=== PATIENT | female | born 1960 | race Caucasian/White ===

== ENCOUNTER 2016-08-10 08:08 | Day surgery (SDC) | payer OTHER ==
[2016-07-19 12:08] VITALS: BMI 24.0
[~2016-08-10 08:08] MED LIST: LACTATED RINGERS 1,000 ML IV SCH
[2016-08-10 08:23] VITALS: TEMP 98.4
[2016-08-10] MEDS ORDERED: LIDOCAINE 1% 20 ML VIAL (10MG/ML) FOR IV START INTRADERMA ONE (08:33)
[2016-08-10] MEDS ORDERED: LIDOCAINE 1% INJ 10MG/ML (20 ML MDV) ONE (09:21)
[2016-08-10] MEDS ORDERED: PROPOFOL 10 MG/ML 20 ML VIAL IV ONE (09:21)
--- NOTE | 2016-08-10 09:24 | P.GSHP ---
History of Present Illness H&P Date: 08/10/16 Chief Complaint: Screening colonoscopy 55-year-old female who presents today for screening colonoscopy. Patient denies a significant GI complaints. - Constitutional Constitutional: Reports as per HPI Past Medical History Past Medical History: COPD History of Any Multi-Drug Resistant Organisms: None Reported Past Surgical History: Tonsillectomy, Tubal Ligation Past Anesthesia/Blood Transfusion Reactions: No Reported Reaction Past Psychological History: Anxiety, Bipolar, Depression Smoking Status: Former smoker Past Alcohol Use History: Occasional Additional Past Alcohol Use History / Comment(s): STARTED SMOKING AT AGE 14 QUIT SMOKING 2014 SMOKED 1PPD/ DRINKS ONE GLASS OF WINE DAILY Past Drug Use History: None Reported - Past Family History Mother Family Medical History: Cancer Additional Family Medical History / Comment(s): CERVICAL CANCER Father Family Medical History: Cancer Medications and Allergies Home Medications Medication Instructions Recorded Confirmed Type Ergocalciferol [Vitamin D2] 50,000 unit PO Q7D 07/19/16 08/10/16 History LORazepam [Ativan] 1 mg PO BID 07/19/16 08/10/16 History OLANZapine [ZyPREXA] 20 mg PO HS 07/19/16 08/10/16 History Sertraline HCl [Zoloft] 200 mg PO DAILY 07/19/16 08/10/16 History cloNIDine HCL [Catapres] 0.2 mg PO BID 07/19/16 08/10/16 History lamoTRIgine [LaMICtal] 100 mg PO BID 07/19/16 08/10/16 History Lurasidone [Latuda] 40 mg PO DAILY 08/06/16 08/10/16 History Allergies Allergy/AdvReac Type Severity Reaction Status Date / Time No Known Allergies Allergy Verified 08/10/16 08:25 Surgical - Exam Vital Signs Temp Pulse Resp BP Pulse Ox 98.4 F 73 16 125/73 96 08/10/16 08:19 08/10/16 08:19 08/10/16 08:19 08/10/16 08:19 08/10/16 08:19 - General well developed, no distress - Eyes PERRL - ENT normal pinna - Neck no masses - Respiratory normal expansion - Cardiovascular Rhythm: regular - Abdomen Abdomen: soft, non tender Assessment and Plan Plan: We'll perform screening colonoscopy
--- NOTE | 2016-08-10 09:42 | P.OP ---
Date of Procedure: 08/10/16 Preoperative Diagnosis: Screening colonoscopy Postoperative Diagnosis: Diverticulosis Left colon polyp Procedure(s) Performed: Colonoscopy Implants: Anesthesia: MAC Surgeon: Henry Daigle Pathology: other (Left colon polyp) Condition: stable Disposition: PACU Indications for Procedure: Operative Findings: Description of Procedure: The patient's placed on the endoscopy table in the lateral position. She received IV sedation. Digital rectal exam was performed which revealed no abnormalities. The flexible colonoscope was then placed patient anus and passed throughout the entire colon. The ileocecal valve lesions. The cecum, ascending and transverse colon appeared normal. In the descending colon there was a small polyp seen this removed the forcep there is also some mild diverticular changes. In the sigmoid colon there is more diverticular changes noted. Scope was then brought back the rectum and this appeared normal. The scope was withdrawn for patient.
[2016-08-10 09:54] VITALS: RESP 18
[2016-08-10 10:04] VITALS: BP 119/58; PULSE 67
== END 2016-08-10 10:30 | disposition home or self-care (01) ==
LOC: ORWHC2ENDO 08:08
PROVIDERS: ATTEND Surgery
DX: Z12.11 Encounter for screening for malignant neoplasm of colon (principal); K63.5 Polyp of colon; K57.30 Diverticulosis of large intestine without perforation or abscess without bleeding; F31.9 Bipolar disorder, unspecified; F41.9 Anxiety disorder, unspecified; J44.9 Chronic obstructive pulmonary disease, unspecified; Z87.891 Personal history of nicotine dependence; Z79.899 Other long term (current) drug therapy
CPT/HCPCS: 88305; 45380; J2001; J2704

== ENCOUNTER → 2018-03-07 | Outpatient (CLI) | payer OTHER ==
[2018-03-07 11:12] VITALS: BP 141/67; PULSE 88; TEMP 97.6; BMI 23.8
--- NOTE | 2018-03-07 11:59 | P.HPOB ---
History of Present Illness H&P Date: 03/07/18 Chief Complaint: The patient is here for her routine gynecologic exam and mammogram. This is a 57-year-old with an LMP of 2008. The patient states she continues to be on HRT which she has used for hot flashes and night sweats. She states her menopausal symptoms have improved while she has been on HRT. She is uncertain if she is taking Premarin or Prempro, but she has been taking half tablet of 0.625 mg daily. Previous records from Dr. Donato' office indicates she was on Prempro 0.5/1.5 daily in the past. She denies any postmenopausal bleeding. She has been getting her HRT prescription from [facility]. She is without gynecologic complaints. Review of Systems The patient has gained 9 pounds over the last 2 years. She denies respiratory, cardiac, or G.I. problems. Past Medical History Past Medical History: COPD, Fibromyalgia Additional Past Medical History / Comment(s): pre diabetic. 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 She has no other history of STDs. History of Any Multi-Drug Resistant Organisms: None Reported Past Surgical History: Tonsillectomy, Tubal Ligation Past Anesthesia/Blood Transfusion Reactions: No Reported Reaction Past Psychological History: Anxiety, Bipolar, Depression Smoking Status: Former smoker Past Alcohol Use History: Occasional Additional Past Alcohol Use History / Comment(s): STARTED SMOKING AT AGE 14 QUIT SMOKING 2014 SMOKED 1PPD/ DRINKS ONE GLASS OF WINE DAILY Past Drug Use History: None Reported - Past Family History Mother Family Medical History: Cancer Additional Family Medical History / Comment(s): CERVICAL CANCER Father Family Medical History: Cancer Medications and Allergies Home Medications Medication Instructions Recorded Confirmed Type Ergocalciferol [Vitamin D2] 50,000 unit PO Q7D 07/19/16 03/07/18 History LORazepam [Ativan] 1 mg PO BID 07/19/16 03/07/18 History Sertraline HCl [Zoloft] 200 mg PO DAILY 07/19/16 03/07/18 History cloNIDine HCL [Catapres] 0.2 mg PO BID 07/19/16 03/07/18 History lamoTRIgine [LaMICtal] 100 mg PO BID 07/19/16 08/10/16 History Dicyclomine [Bentyl] 10 mg PO PRN 03/07/18 History Estrogens, Conjugated [Premarin] 0.625 mg PO DIRECTED 03/07/18 03/07/18 History Omeprazole 20 mg PO PRN 03/07/18 History metFORMIN HCL [Glucophage Xr] 500 mg PO HS 03/07/18 03/07/18 History risperiDONE [RisperDAL] 0.5 mg PO TID 03/07/18 03/07/18 History Allergies Allergy/AdvReac Type Severity Reaction Status Date / Time No Known Allergies Allergy Verified 03/07/18 10:43 Exam Vital Signs Temp Pulse BP 03/07/18 11:08 97.6 F 88 141/67 Intake and Output 03/06/18 03/07/18 03/07/18 22:59 06:59 14:59 Other: Weight 63.049 kg Height 5'4", weight 139 pounds, BMI 23.9. This is a well-developed well-nourished white female who is alert and oriented times 3 in no acute distress. HEENT: Within normal limits. NECK: Supple without mass or thyromegaly. CHEST AND LUNGS: Clear to auscultation. HEART: Regular rate and rhythm. BREASTS: Are without mass or discharge. AXILLARY EXAM: Negative for adenopathy. BACK: Negative for CVA tenderness. ABDOMEN: Soft, nontender, without palpable masses. PELVIC EXAM: Normal external genitalia with mild atrophy. Cervix and vagina appear normal mild atrophy. There is no unusual discharge. There is no evidence of prolapse. The uterus is midposition, nongravid size and nontender. There are no palpable adnexal masses or tenderness. RECTAL EXAM: rectovaginal exam is negative for mass or tenderness and is negative for occult blood. EXTREMITIES: Nontender. IMPRESSION: 1. 57-year-old menopausal female who has done well with low dose HRT used for vasomotor menopausal symptoms. 2. Normal gynecologic exam. PLAN: 1. Pap smear was performed. 2. Self breast awareness was discussed with the patient. 3. Greening mammogram will be done today. 4. We have had a long discussion regarding HRT including the WHI study findings. We have discussed the increased risk for heart attack, stroke and breast cancer on HRT. I recommended that she try to wean off of this as soon as possible. Within the next month or 2, I have recommended that she go to taking her HRT every other day, and then to wean off completely in the next month or 2 following. She was instructed to call she has problems with vasomotor symptoms or if any postmenopausal bleeding. The electronic prescription for Prempro 0.3/1.5 will be sent to [facility] pharmacy on [address]. She was instructed to return if she has not been able to wean off completely within 6 months. She will also cause she is having worsening vasomotor symptoms when she tries to wean off. 5.Osteoporosis prevention was discussed. I have stressed the importance of adequate calcium, vitamin D and regular exercise. Recommended amounts of calcium and vitamin D were also discussed. 6. She will return in one year and PRN.
--- NOTE | 2018-03-08 10:13 | MM ---
Reason for exam: screening (asymptomatic). Last mammogram was performed 2 years and 6 months ago. History: Patient is postmenopausal and history of other cancer. Benign cyst aspiration of the left breast, November 27, 1997. Benign cyst aspiration of the right breast, November 27, 1997. 8 cyst aspirations of the left breast. Taking estrogen beginning at age 54. Physical Findings: A clinical breast exam by your physician is recommended on an annual basis and results should be correlated with mammographic findings. MG Screening Mammo w CAD Bilateral CC and MLO view(s) were taken. Prior study comparison: September 18, 2015, left breast MG work up mamm w CAD LT. September 16, 2015, bilateral MG screening mammo w CAD. The breast tissue is extremely dense which could obscure a lesion on mammography. Benign appearing bilateral calcifications. No suspicious abnormality. No significant changes when compared with prior studies. ASSESSMENT: Benign, BI-RAD 2 RECOMMENDATION: Routine screening mammogram of both breasts in 1 year.
== END ==
LOC: WWCWWP 10:24
PROVIDERS: ATTEND Obstetrics & Gynecology
DX: Z12.31 Encounter for screening mammogram for malignant neoplasm of breast (principal)
CPT/HCPCS: 77067

== ENCOUNTER 2020-01-09 14:35 | Inpatient (IN) | payer MEDICAID, OTHER ==
--- NOTE | 2020-01-09 15:24 | ED ---
General Adult HPI - General Chief complaint: Psychiatric Symptoms Stated complaint: mental health Time Seen by Provider: 01/09/20 14:52 Source: patient, family Mode of arrival: ambulatory Limitations: no limitations - History of Present Illness Initial comments: Dictation was produced using [employer] dictation software. please excuse any grammatical, word or spelling errors. This patient was cared for during a federal and state declared state of emergency secondary to Covid 19 Chief Complaint: 59-year-old female past medical history of depression anxiety and anxiety presents with depression History of Present Illness: Patient is a 59-year-old female she has past medical history depression and anxiety. She does have a counselor and the medical provider that treats her for this. She is depressed because her will drive her out of the house due to the risk of sonia coronavirus. She is very upset about this. She is accompanied by her sister Hansa who drove her to the emergency room to be evaluated. Patient denies any suicidal attempt. She had does however feel suicidal. She repeatedly says she does not want to be here. She does not have a specific plan. She denies any homicidal ideation. No visual or auditory hallucinations. Patient does not have any medical complaints at this time. The ROS documented in this emergency department record has been reviewed and confirmed by me. Those systems with pertinent positive or negative responses have been documented in the HPI. All other systems are other negative and/or noncontributory. PHYSICAL EXAM: General Impression: Alert and oriented x3, not in acute distress HEENT: Normocephalic atraumatic, extra-ocular movements intact, pupils equal and reactive to light bilaterally, mucous membranes moist. Cardiovascular: Heart regular rate and rhythm Chest: Able to complete full sentences, no retractions, no tachypnea Abdomen: abdomen soft, non-tender, non-distended, no organomegaly Musculoskeletal: Pulses present and equal in all extremities, no peripheral edema Motor: no focal deficits noted Neurological: CN II-XII grossly intact, no focal motor or sensory deficits noted Skin: Intact with no visualized rashes Psych: Tearful ED course: 59 y Old female presents with depression and suicidal ideation. Signs upon arrival are within acceptable limits. Patient medically cleared for EPS evaluation. Patient evaluated by EPS and will admit patient to inpatient psychiatry. - Related Data Home Medications Medication Instructions Recorded Confirmed Ergocalciferol [Vitamin D2] 50,000 unit PO MO 07/19/16 01/09/20 cloNIDine HCL [Catapres] 0.2 mg PO QID 07/19/16 01/09/20 lamoTRIgine [LaMICtal] 100 mg PO TID 07/19/16 01/09/20 Atomoxetine HCl [Strattera] 60 mg PO DAILY 01/09/20 01/09/20 Ibuprofen [Motrin] 800 mg PO DAILY PRN 01/09/20 01/09/20 LORazepam [Ativan] 2 mg PO Q12H PRN 01/09/20 01/09/20 Vilazodone HCl [Viibryd] 40 mg PO DAILY 01/09/20 01/09/20 metFORMIN HCL 500 mg PO DAILY 01/09/20 01/09/20 risperiDONE 4 mg PO DAILY 01/09/20 01/09/20 Allergies Allergy/AdvReac Type Severity Reaction Status Date / Time No Known Allergies Allergy Verified 01/09/20 16:18 Review of Systems ROS Statement: Those systems with pertinent positive or pertinent negative responses have been documented in the HPI. ROS Other: All systems not noted in ROS Statement are negative. Past Medical History Past Medical History: COPD, Fibromyalgia Additional Past Medical History / Comment(s): pre diabetic. 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 She has no other history of STDs. History of Any Multi-Drug Resistant Organisms: None Reported Past Surgical History: Tonsillectomy, Tubal Ligation Past Anesthesia/Blood Transfusion Reactions: No Reported Reaction Past Psychological History: Anxiety, Bipolar, Depression Smoking Status: Vaper Past Alcohol Use History: Occasional Past Drug Use History: None Reported - Past Family History Mother Family Medical History: Cancer Additional Family Medical History / Comment(s): CERVICAL CANCER Father Family Medical History: Cancer General Exam Limitations: no limitations Course Vital Signs 01/09/20 14:46 Temperature 98.1 F Pulse Rate 98 Respiratory 16 Rate Blood Pressure 170/91 O2 Sat by Pulse 95 Oximetry Medical Decision Making - Lab Data Lab Results 01/09/20 Range/Units 15:27 Urine Opiates Screen Not Detected (NotDetected) Ur Oxycodone Screen Not Detected (NotDetected) Urine Methadone Screen Not Detected (NotDetected) Ur Propoxyphene Screen Not Detected (NotDetected) Ur Barbiturates Screen Not Detected (NotDetected) U Tricyclic Antidepress Not Detected (NotDetected) Ur Phencyclidine Scrn Not Detected (NotDetected) Ur Amphetamines Screen Not Detected (NotDetected) U Methamphetamines Scrn Not Detected (NotDetected) U Benzodiazepines Scrn Detected H (NotDetected) Urine Cocaine Screen Not Detected (NotDetected) U Marijuana (THC) Screen Detected H (NotDetected) Disposition Clinical Impression: Suicidal behavior Disposition: ADMITTED IP TO THIS [facility] Condition: Fair Decision Time: 17:01
[2020-01-09 15:57] LABS: Amphetamine Screen,Urine Not Detected (NotDetected); Barbiturate Screen,Urine Not Detected (NotDetected); Benzodiazepines Screen,Urine Detected (NotDetected); Cocaine Screen,Urine Not Detected (NotDetected); Methadone Screen, Urine Not Detected (NotDetected); Opiate Screen,Urine Not Detected (NotDetected); Oxycodone Screen, Urine Not Detected (NotDetected); Phencyclidine Screen,Urine Not Detected (NotDetected); Tricyclic Antidepressant,Urine Not Detected (NotDetected); Urn Cannabinoid Scrn Detected (NotDetected)
[2020-01-09] MEDS ORDERED: IBUPROFEN 400 MG TAB PO STA (16:16)
[2020-01-09] MEDS: ALPRAZolam 0.5 MG TAB PO STA ×2 (16:18→16:19)
[2020-01-09] MEDS ORDERED: LORazepam 1 MG TAB PO STA (16:19)
[2020-01-09] MEDS ORDERED: ZIPRASIDONE 20 MG VIAL IM PRN (17:04)
[2020-01-09] MEDS ORDERED: MAGNESIUM HYDROXIDE 2,400 MG/10 ML CUP PO PRN (17:04)
[2020-01-09] MEDS: cloNIDine HCL 0.2 MG TAB PO SCH ×2 (18:10→21:31)
[2020-01-09 18:16] LABS: Glucose,Whole Blood 100 mg/dL (75-99)
[2020-01-09 20:09] LABS: Glucose,Whole Blood 101 mg/dL (75-99)
[2020-01-09] MEDS: lamoTRIgine 100 MG TAB PO SCH (21:31)
[2020-01-10] MEDS: LORazepam 1 MG TAB PO PRN ×3 (01:35→16:36)
[2020-01-10] MEDS: ACETAMINOPHEN TAB 325 MG TAB PO PRN ×3 (04:31→17:23)
[2020-01-10] MEDS ORDERED: IBUPROFEN 400 MG TAB PO STA (06:33)
[2020-01-10 08:09] LABS: Glucose,Whole Blood 124 mg/dL (75-99)
[2020-01-10] MEDS: cloNIDine HCL 0.2 MG TAB PO SCH ×4 (08:14→21:29)
[2020-01-10] MEDS: metFORMIN 500 MG TAB PO SCH (08:15)
[2020-01-10] MEDS: lamoTRIgine 100 MG TAB PO SCH ×3 (08:15→21:29)
[2020-01-10] MEDS: MAG HYDROX/AL HYDROX/SIMETH 30 ML CUP PO PRN (08:16)
[2020-01-10] MEDS: IBUPROFEN 800 MG TAB PO PRN (08:32)
[2020-01-10] MEDS ORDERED: risperiDONE 2 MG TAB PO SCH (09:00)
[2020-01-10 12:09] LABS: Basophils % (A) 0 %; Eosinophils # (A) 0.1 k/uL (0-0.7); Eosinophils % (A) 1 %; HCT 45.2 % (34.0-46.0); HGB 14.9 gm/dL (11.4-16.0); Lymphocytes # (A) 1.8 k/uL (1.0-4.8); Lymphocytes % (A) 17 %; MCH 30.9 pg (25.0-35.0); MCHC 33.1 g/dL (31.0-37.0); MCV 93.5 fL (80.0-100.0); Mean Platelet Volume 7.1; Monocytes # (A) 0.4 k/uL (0-1.0); Monocytes % (A) 4 %; Neutrophils # (A) 7.9 k/uL (1.3-7.7); Neutrophils % (A) 76 %; Platelet Count 387 k/uL (150-450); RBC 4.83 m/uL (3.80-5.40); RDW 11.9 % (11.5-15.5); WBC 10.5 k/uL (3.8-10.6)
[2020-01-10 12:21] LABS: ALT 27 U/L (4-34); AST 31 U/L (14-36); African American GFR (CKD) >90 (>60 ml/min/1.73 sqM); Albumin 4.6 g/dL (3.5-5.0); Alkaline Phosphatase 96 U/L (38-126); Anion Gap 12 mmol/L; Blood Urea Nitrogen 7 mg/dL (7-17); Calcium 9.9 mg/dL (8.4-10.2); Carbon Dioxide 24 mmol/L (22-30); Chloride 101 mmol/L (98-107); Glucose 105 mg/dL (74-99); Non-African American GFR(CKD) >90 (>60 ml/min/1.73 sqM); Potassium 4.3 mmol/L (3.5-5.1); Sodium 137 mmol/L (137-145); Total Bilirubin 0.8 mg/dL (0.2-1.3); Total Protein 7.4 g/dL (6.3-8.2)
[2020-01-10 12:59] LABS: Glucose,Whole Blood 106 mg/dL (75-99)
[2020-01-10 13:06] VITALS: BMI 21.8
[2020-01-10 13:07] LABS: Cholesterol 256 mg/dL (<200); HDL Cholesterol 61 mg/dL (40-60); LDL Cholesterol,Calculated 145 mg/dL (0-99); Triglycerides 252 mg/dL (<150)
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
[2020-01-10 17:48] LABS: Glucose,Whole Blood 105 mg/dL (75-99)
[2020-01-10 20:07] LABS: Glucose,Whole Blood 129 mg/dL (75-99)
[2020-01-10] MEDS: FLUTICASONE 50MCG/SPRAY NASAL 16GM EA NOSTRIL SCH (20:41)
[2020-01-10] MEDS ORDERED: traZODone HCL 100 MG TAB PO SCH (21:00)
[2020-01-10 21:55] LABS: Hemoglobin A1C 5.9 % (4.0-6.0)
--- NOTE | 2020-01-10 22:51 | P.CONS ---
History of Present Illness - Reason for Consult Consult date: 01/10/20 medical eval - Chief Complaint suicidal - History of Present Illness Bryanna Saez is a 59 yo F with PMH of major depression, T2DM who was brought to the ED by her sister due to expressing suicidal ideation. She lives with her ex- and notes she is very lonely due to the pandemic and has no one to talk to. She also complains of sinus pressure and headache over the psat few weeks. She denies chest pain, fever, chills. Review of Systems All systems: negative Constitutional: Denies chills, Denies fever Eyes: denies blurred vision, denies pain Ears, nose, mouth and throat: Reports headache, Denies sore throat Cardiovascular: Denies chest pain, Denies shortness of breath Respiratory: Denies cough Gastrointestinal: Denies abdominal pain, Denies diarrhea, Denies nausea, Denies vomiting Genitourinary: Denies dysuria, Denies hematuria Musculoskeletal: Denies myalgias Integumentary: Denies pruritus, Denies rash Neurological: Denies numbness, Denies weakness Psychiatric: Reports anxiety, Reports depression, Reports suicidal ideation Endocrine: Denies fatigue, Denies weight change Past Medical History Past Medical History: COPD Additional Past Medical History / Comment(s): pre diabetic. 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 She has no other history of STDs. History of Any Multi-Drug Resistant Organisms: None Reported Past Surgical History: Tonsillectomy, Tubal Ligation Past Anesthesia/Blood Transfusion Reactions: No Reported Reaction Past Psychological History: Anxiety, Bipolar, Depression Smoking Status: Vaper Past Alcohol Use History: Occasional Additional Past Alcohol Use History / Comment(s): STARTED SMOKING AT AGE 14 QUIT SMOKING 2014 SMOKED 1PPD/ DRINKS ONE GLASS OF WINE DAILY Past Drug Use History: None Reported - Past Family History Mother Family Medical History: COPD Additional Family Medical History / Comment(s): CERVICAL CANCER Father Family Medical History: Cancer Medications and Allergies Home Medications Medication Instructions Recorded Confirmed Type Ergocalciferol [Vitamin D2] 50,000 unit PO MO 07/19/16 01/09/20 History cloNIDine HCL [Catapres] 0.2 mg PO QID 07/19/16 01/09/20 History lamoTRIgine [LaMICtal] 100 mg PO TID 07/19/16 01/09/20 History Atomoxetine HCl [Strattera] 60 mg PO DAILY 01/09/20 01/09/20 History Ibuprofen [Motrin] 800 mg PO DAILY PRN 01/09/20 01/09/20 History LORazepam [Ativan] 2 mg PO Q12H PRN 01/09/20 01/09/20 History Vilazodone HCl [Viibryd] 40 mg PO DAILY 01/09/20 01/09/20 History metFORMIN HCL 500 mg PO DAILY 01/09/20 01/09/20 History risperiDONE 4 mg PO DAILY 01/09/20 01/09/20 History Allergies Allergy/AdvReac Type Severity Reaction Status Date / Time No Known Allergies Allergy Verified 01/09/20 18:22 Physical Exam Vitals: Vital Signs Temp Pulse Resp BP BP 01/10/20 22:02 105 H 138/97 01/10/20 21:31 101 H 170/77 01/10/20 17:21 113 H 135/101 01/10/20 14:13 111 H 146/73 01/10/20 13:05 125 H 177/77 01/10/20 08:17 99 166/91 01/10/20 01:36 97.8 F 87 18 147/85 Intake and Output 01/10/20 01/10/20 01/10/20 06:59 14:59 22:59 Other: Weight 57.606 kg General: well nourished, well developed, NAD. Vitals reviewed Eyes: PERRL, EOMI, conjunctiva normal HENT: normocephalic, mucus membranes moist Neck: supple, no JVD Lungs: normal respiratory effort, no wheezes or rales CV: Regular rate and rhythm, no murmur. Peripheral pulses 2+ Abdomen: soft, nondistended, no organomegaly Lymph: no cervical or axillary LAD Skin: warm and dry. Neuro: A&Ox3, normal mood and affect Results CBC & Chem 7: 01/10/20 11:28 01/10/20 11:28 Labs: Abnormal Lab Results - Last 24 Hours (Table) 01/10/20 01/10/20 01/10/20 Range/Units 08:06 11:28 11:28 Neutrophils # 7.9 H (1.3-7.7) k/uL Glucose 105 H (74-99) mg/dL POC Glucose (mg/dL) 124 H (75-99) mg/dL Triglycerides 252 H (<150) mg/dL Cholesterol 256 H (<200) mg/dL LDL Cholesterol, Calc 145 H (0-99) mg/dL HDL Cholesterol 61 H (40-60) mg/dL 01/10/20 01/10/20 01/10/20 Range/Units 12:57 17:45 20:06 Neutrophils # (1.3-7.7) k/uL Glucose (74-99) mg/dL POC Glucose (mg/dL) 106 H 105 H 129 H (75-99) mg/dL Triglycerides (<150) mg/dL Cholesterol (<200) mg/dL LDL Cholesterol, Calc (0-99) mg/dL HDL Cholesterol (40-60) mg/dL Assessment and Plan (1) Allergic rhinitis Current Visit: Yes Status: Acute Code(s): J30.9 - ALLERGIC RHINITIS, UNSPECIFIED SNOMED Code(s): 75394106 (2) Suicidal behavior Current Visit: Yes Status: Acute Code(s): R45.89 - OTHER SYMPTOMS AND SIGNS INVOLVING EMOTIONAL STATE SNOMED Code(s): 819189799 Plan: 1. Suicidal ideation. Management per psychiatry 2. Allergic rhinitis. Start flonase 3. T2DM. Continue metformin
[2020-01-11] MEDS: LORazepam 1 MG TAB PO PRN ×2 (00:41→07:57)
[2020-01-11] MEDS: IBUPROFEN 800 MG TAB PO PRN ×3 (00:42→20:53)
[2020-01-11] MEDS: ACETAMINOPHEN TAB 325 MG TAB PO PRN (04:17)
[2020-01-11 07:40] LABS: Glucose,Whole Blood 104 mg/dL (75-99)
[2020-01-11] MEDS: FLUTICASONE 50MCG/SPRAY NASAL 16GM EA NOSTRIL SCH ×2 (07:56→20:52)
[2020-01-11] MEDS: ARIPiprazole 5 MG TAB PO SCH (07:56)
[2020-01-11] MEDS: cloNIDine HCL 0.2 MG TAB PO SCH ×4 (07:56→20:17)
[2020-01-11] MEDS: lamoTRIgine 100 MG TAB PO SCH ×3 (07:57→20:17)
[2020-01-11] MEDS: metFORMIN 500 MG TAB PO SCH (07:57)
[2020-01-11] MEDS ORDERED: ESCITALOPRAM 10 MG TAB PO SCH (09:00)
--- NOTE | 2020-01-11 11:18 | P.PN ---
Progress Note - Text Progress Note Date: 01/11/20 I reviewed medical records ,did interview patient and case was discussed in treatment team Slept 2-3 hours ,was up at night I reviewed medical consult LABS: Glucose:104,A1c 5.9,Triglycerides:252,Cholesterol 256 ,LDL :145 TODAY VITALS: P:117,R:20,BP:186/92 Participating in groups INTERVAL : patient was laying in bed and agreed to come to office ,stated that she wants to be discharged as "I do not feel comfortable in the bed "stated that she is not depressed but still anxious ,stated that she is social drinker but has been on benzodiazepine for 10 years Rx by PCP ,endorses feeling tired and having migraine ,patient is not forthcoming with past hx and why she is on SSD since 2014 "I had nervous breakdown "but patient was not hospitalized at that time and was treated by her PCP Mental status exam: Patient was wearing her own clothing,hygiene and grooming are fair,,guarded ,evasive ,not forthcoming with informations except demanding to be discharged ,denies any hallucination , ,, alert to person and place ,denies suicidal or homicidal ideation ,insight and judgment are limited ASSESSMENT :Major Depression ,recurrent ,sedative hypnotic use disorder PLAN: Patient continues to meet criteria for inpatient psychiatric admission for symptom stabilization , monitor vitals Q 4 hours ,reconsult medical doctor regarding abnormal labs,continue Abilify ,Lexapro ,add Trazodone for sleep ,PRN Ativan and monitor sedative hypnotic withdrawal ,encourage groups participation,SW on board for discharge planning Estimated discharge :1-2 days
[2020-01-11 12:55] LABS: Glucose,Whole Blood 124 mg/dL (75-99)
[2020-01-11 17:36] LABS: Glucose,Whole Blood 106 mg/dL (75-99)
[2020-01-11 20:11] LABS: Glucose,Whole Blood 157 mg/dL (75-99)
[2020-01-11] MEDS: ATORVASTATIN 10 MG TAB PO SCH (20:17)
[2020-01-11] MEDS: traZODone HCL 50 MG TAB PO SCH (20:17)
[2020-01-12 07:49] LABS: Glucose,Whole Blood 112 mg/dL (75-99)
[2020-01-12] MEDS: ESCITALOPRAM 20 MG TAB PO SCH (08:21)
[2020-01-12] MEDS: ARIPiprazole 5 MG TAB PO SCH (08:21)
[2020-01-12] MEDS: cloNIDine HCL 0.2 MG TAB PO SCH ×4 (08:21→18:02)
[2020-01-12] MEDS: IBUPROFEN 800 MG TAB PO PRN (08:22)
[2020-01-12] MEDS: lamoTRIgine 100 MG TAB PO SCH ×3 (08:22→21:15)
[2020-01-12] MEDS: metFORMIN 500 MG TAB PO SCH (08:22)
[2020-01-12] MEDS: FLUTICASONE 50MCG/SPRAY NASAL 16GM EA NOSTRIL SCH ×2 (08:22→21:14)
--- NOTE | 2020-01-12 10:10 | P.PN ---
Progress Note - Text Progress Note Date: 01/12/20 Interval history: Patient was seen wandering the hallways and was directable and agreeable to s peak with play writer. Patient appears to be somewhat anxious however claims that her anxiety and depression have been improving. She claims that she was able to sleep a bit better last night however still feels a little bit "shaky" from her withdrawals. She states that she has been trying to go to some groups. She was asking about possible discharge on Tuesday. She appeared to be calm and appropri ate with play writer during conversation. She claims to fair appetite. At this time patient denies any suicidal or homicidal ideations intent or plan. Denies any Auditory or visual hallucinations. Patient denies any side effects from the medications and has been compliant with meds. Mental status exam: General Appearance: Patient appears to be stated age is alert, directable, and cooperative. Behavior: No agitated behavior. Patient is calm and directable. Somewhat anxious. Speech: Patient's speech is fluent and nonpressured. Mood/Affect: Mood is improving mildly, affect is congruent and constricted. Suicidality/Homicidality: Patient denies having any suicidal or homicidal ideation intent or plan. Perceptions: Patient denies any auditory or visual hallucinations. Though content/process: There is no evidence of any delusional thought content and thought process is linear and goal-directed. Memory and concentration: AOX3, grossly intact for the purposes of this session Judgment and insight: improving mildly Assessment/Plan: Continue with current diagnosis. Patient continues to meet criteria for inpatient psychiatric admission for symptom stabilization and safety.Patient will be maintained on current psychotropic medication regimen. Monitor for medication compliance and for any psychotropic medication side effects. Will continue to monitor ongoing response to treatment. Encouraged participation in milieu.
[2020-01-12] MEDS: LORazepam 1 MG TAB PO PRN (10:40)
[2020-01-12 12:51] LABS: Glucose,Whole Blood 96 mg/dL (75-99)
[2020-01-12] MEDS: ACETAMINOPHEN TAB 325 MG TAB PO PRN (16:24)
[2020-01-12 17:31] LABS: Glucose,Whole Blood 104 mg/dL (75-99)
[2020-01-12 20:46] LABS: Glucose,Whole Blood 145 mg/dL (75-99)
[2020-01-12] MEDS: traZODone HCL 50 MG TAB PO SCH (21:15)
[2020-01-12] MEDS: ATORVASTATIN 10 MG TAB PO SCH (21:15)
[2020-01-13 07:47] LABS: Glucose,Whole Blood 101 mg/dL (75-99)
[2020-01-13] MEDS: cloNIDine HCL 0.2 MG TAB PO SCH ×4 (08:49→20:09)
[2020-01-13] MEDS: FLUTICASONE 50MCG/SPRAY NASAL 16GM EA NOSTRIL SCH ×2 (08:49→20:09)
[2020-01-13] MEDS: ESCITALOPRAM 20 MG TAB PO SCH (08:49)
[2020-01-13] MEDS: ARIPiprazole 5 MG TAB PO SCH (08:49)
[2020-01-13] MEDS: lamoTRIgine 100 MG TAB PO SCH ×3 (08:50→20:08)
[2020-01-13] MEDS: metFORMIN 500 MG TAB PO SCH (08:50)
--- NOTE | 2020-01-13 10:25 | P.PN ---
Progress Note - Text Progress Note Date: 01/13/20 Interval history: Patient was seen wandering the hallways and was directable and agreeable to s peak with sql report writer. Patient appears to be somewhat anxious however claims that her anxiety and depression have been improving. She claims that she just finished group and was speaking about her story and made her feel "like crying a little bit" and states that she wanted to go to her room to lay down. She claims that she was able to sleep a bit better last night however claims that she only received 5 hours of sleep and requested to have her trazodone increased. Patient also claims that she takes melatonin at home who is willing to take that in the hospital. She states that she has been trying to go to some groups. She appeared to be calm and appropriate with sql report writer during conversation. She claims to fair appetite. At this time patient denies any suicidal or homicidal ideations intent or plan. Denies any Auditory or visual hallucinations. Patient denies any side effects from the medications and has been compliant with meds. Mental status exam: General Appearance: Patient appears to be stated age is alert, directable, and cooperative. Behavior: No agitated behavior. Patient is calm and directable. Speech: Patient's speech is fluent and nonpressured. Mood/Affect: Mood is improving mildly, affect is congruent and constricted. Suicidality/Homicidality: Patient denies having any suicidal or homicidal ideation intent or plan. Perceptions: Patient denies any auditory or visual hallucinations. Though content/process: There is no evidence of any delusional thought content and thought process is linear and goal-directed. Memory and concentration: AOX3, grossly intact for the purposes of this session Judgment and insight: improving mildly Assessment/Plan: Continue with current diagnosis. Patient continues to meet criteria for inpatient psychiatric admission for symptom stabilization and safety.Patient will be maintained on current psychotropic medication regimen, with the exception of increasing trazodone to 200 mg daily at bedtime for insomnia/mood and also starting melatonin 3 mg daily at bedtime for insomnia. Monitor for medication compliance and for any psychotropic medication side effects. Will continue to monitor ongoing response to treatment. Encouraged participation in milieu.
[2020-01-13 12:46] LABS: Glucose,Whole Blood 103 mg/dL (75-99)
[2020-01-13 17:36] LABS: Glucose,Whole Blood 112 mg/dL (75-99)
[2020-01-13] MEDS: ACETAMINOPHEN TAB 325 MG TAB PO PRN (17:39)
[2020-01-13 20:06] LABS: Glucose,Whole Blood 131 mg/dL (75-99)
[2020-01-13] MEDS: ATORVASTATIN 10 MG TAB PO SCH (20:08)
[2020-01-13] MEDS: MAG HYDROX/AL HYDROX/SIMETH 30 ML CUP PO PRN (20:48)
[2020-01-13] MEDS: LORazepam 1 MG TAB PO PRN (20:48)
[2020-01-13] MEDS ORDERED: MELATONIN 3 MG TABLET PO SCH (21:00)
[2020-01-13] MEDS ORDERED: traZODone HCL 100 MG TAB PO SCH (21:00)
[2020-01-14 06:43] VITALS: RESP 16; TEMP 98.6
[2020-01-14 08:06] LABS: Glucose,Whole Blood 107 mg/dL (75-99)
[2020-01-14] MEDS ORDERED: ERGOCALCIFEROL 50,000 UNIT CAP PO SCH (09:00)
[2020-01-14] MEDS: FLUTICASONE 50MCG/SPRAY NASAL 16GM EA NOSTRIL SCH (09:10)
[2020-01-14] MEDS: ARIPiprazole 5 MG TAB PO SCH (09:13)
[2020-01-14] MEDS: metFORMIN 500 MG TAB PO SCH (09:13)
[2020-01-14] MEDS: LORazepam 1 MG TAB PO PRN (09:13)
[2020-01-14] MEDS: cloNIDine HCL 0.2 MG TAB PO SCH ×2 (09:13→13:06)
[2020-01-14] MEDS: ESCITALOPRAM 20 MG TAB PO SCH (09:13)
[2020-01-14] MEDS: lamoTRIgine 100 MG TAB PO SCH (09:13)
[2020-01-14] MEDS ORDERED: traZODone HCL 100 MG TAB PO PRN (09:29)
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
[2020-01-14 12:52] LABS: Glucose,Whole Blood 99 mg/dL (75-99)
[2020-01-14 13:58] VITALS: BP 108/63; PULSE 85
== END 2020-01-14 14:12 | disposition home or self-care (01) | DRG 885 ==
LOC: EC 14:35 → 3MHU 16:58
PROVIDERS: ADMIT Psychiatry & Neurology Psychiatry; ATTEND Psychiatry & Neurology Psychiatry
DX: F33.2 Major depressive disorder, recurrent severe without psychotic features (principal); R45.851 Suicidal ideations; E11.9 Type 2 diabetes mellitus without complications; J44.9 Chronic obstructive pulmonary disease, unspecified; F13.10 Sedative, hypnotic or anxiolytic abuse, uncomplicated; F12.10 Cannabis abuse, uncomplicated; F41.9 Anxiety disorder, unspecified; I10 Essential (primary) hypertension; J30.9 Allergic rhinitis, unspecified; M79.7 Fibromyalgia; G43.909 Migraine, unspecified, not intractable, without status migrainosus; G47.00 Insomnia, unspecified; G89.29 Other chronic pain; F17.210 Nicotine dependence, cigarettes, uncomplicated; F17.290 Nicotine dependence, other tobacco product, uncomplicated; Z71.6 Tobacco abuse counseling; Z79.84 Long term (current) use of oral hypoglycemic drugs; Z79.899 Other long term (current) drug therapy; Z86.59 Personal history of other mental and behavioral disorders; Z86.19 Personal history of other infectious and parasitic diseases; Z90.89 Acquired absence of other organs; Z98.51 Tubal ligation status; Z56.0 Unemployment, unspecified; Z98.890 Other specified postprocedural states; Z80.49 Family history of malignant neoplasm of other genital organs; Z82.5 Family history of asthma and other chronic lower respiratory diseases; Z81.8 Family history of other mental and behavioral disorders
CPT/HCPCS: 80053; 80061; 80306; 82075; 83036; 84443; 85025; 99285

== ENCOUNTER → 2023-01-07 | Outpatient (CLI) | payer OTHER ==
--- NOTE | 2023-01-10 07:22 | USB ---
Reason for Exam: Additional evaluation requested from abnormal screening. Patient History: Menarche at age 12. First Full-Term at age 20. Postmenopausal. Other cancer. Currently using Estrogen, starting at age 54. Cyst Aspiration on the Left side. Cyst Aspiration on the Left side. Cyst Aspiration on the Left side. Cyst Aspiration on the Left side. Cyst Aspiration on the Left side. Cyst Aspiration on the Left side. Cyst Aspiration on the Left side. Cyst Aspiration on the Left side. 11/27/1997, Benign Cyst Aspiration on the right side. 11/27/1997, Benign Cyst Aspiration on the left side. Risk Values: Clair 5 year model risk: 1.4%. NCI Lifetime model risk: 6.0%. Technique: Method: Targeted. Prior Study Comparison: 09/18/2015 Left Diagnostic Mammogram, [facility]. 03/07/2018 Bilateral Screening Mammogram, [facility]. 12/29/2022 Bilateral MG screening mammo w CAD, [facility]. Findings: The upper inner quadrant of the left breast, the axilla of the left breast and the retroareolar of the left breast were scanned. No solid or cystic masses are identified. Mildly prominent ducts noted. Overall Assessment: Benign, BI-RAD 2 Management: Screening Mammogram of both breasts in 1 year. A clinical breast exam by your physician is recommended on an annual basis and results should be correlated with mammographic findings. This exam should not preclude additional follow-up of suspicious palpable abnormalities. Results were given to the patient verbally at the time of exam. Electronically signed and approved by: Yeison Blandon M.D. Radiologis
--- NOTE | 2023-01-12 12:33 | MM ---
Reason for Exam: Additional evaluation requested from abnormal screening. Last screening mammogram was performed less than 1 month ago. Patient History: Menarche at age 12. First Full-Term at age 20. Postmenopausal. Other cancer. Currently using Estrogen, starting at age 54. Cyst Aspiration on the Left side. Cyst Aspiration on the Left side. Cyst Aspiration on the Left side. Cyst Aspiration on the Left side. Cyst Aspiration on the Left side. Cyst Aspiration on the Left side. Cyst Aspiration on the Left side. Cyst Aspiration on the Left side. 11/27/1997, Benign Cyst Aspiration on the right side. 11/27/1997, Benign Cyst Aspiration on the left side. Risk Values: Clair 5 year model risk: 1.4%. NCI Lifetime model risk: 6.0%. Prior Study Comparison: 03/07/2018 Bilateral Screening Mammogram, [facility]. 12/29/2022 Bilateral MG screening mammo w CAD, [facility]. Tissue Density: The breast tissue is heterogeneously dense. This may lower the sensitivity of mammography. Findings: Analyzed By CAD. Increased retroareolar density left breast. Ultrasound recommended. No evidence for suspicious calcifications. Overall Assessment: Incomplete: need additional imaging evaluation, BI-RAD 0 Management: Diagnostic Breast Ultrasound of the left breast. Results were given to the patient verbally at the time of exam. Patient should continue monthly self-breast exams. A clinical breast exam by your physician is recommended on an annual basis. This exam should not preclude additional follow-up of suspicious palpable abnormalities. Note on Clair scores and lifetime risk: 1. A Clair score greater than 3% is considered moderate risk. If this is the case, consider specialist referral to assess eligibility for a risk reducing agent. 2. If overall lifetime risk for the development of breast cancer is 20% or higher, the patient may qualify for future screening with alternating mammogram and breast MRI. Electronically signed and approved by: Yeison Blandon M.D. Radiologis
== END | disposition home or self-care (01) ==
LOC: RADMAMWWP 13:33
PROVIDERS: ATTEND Family Medicine
DX: R92.333 Mammographic heterogeneous density, bilateral breasts (principal); Z78.0 Asymptomatic menopausal state
CPT/HCPCS: 77066; 76642; G0279; 77062

== ENCOUNTER → 2024-09-24 | Outpatient (CLI) | payer OTHER ==
--- NOTE | 2024-09-24 14:52 | MM ---
Reason for Exam: Screening (asymptomatic). Last mammogram was performed 1 year(s) and 9 month(s) ago. Patient History: Menarche at age 12. First Full-Term at age 20. Postmenopausal. Other cancer. Estrogen, starting at age 54 for 8 years. Cyst Aspiration on the Left side. Cyst Aspiration on the Left side. Cyst Aspiration on the Left side. Cyst Aspiration on the Left side. Cyst Aspiration on the Left side. Cyst Aspiration on the Left side. Cyst Aspiration on the Left side. Cyst Aspiration on the Left side. 11/27/1997, Benign Cyst Aspiration on the right side. 11/27/1997, Benign Cyst Aspiration on the left side. Risk Values: Clair 5 year model risk: 1.4%. NCI Lifetime model risk: 5.8%. Prior Study Comparison: 03/07/2018 Bilateral Screening Mammogram, [facility]. 12/29/2022 Bilateral MG screening mammo w CAD, [facility]. 01/07/2023 Bilateral MG 3D work up w/cad [facility], [facility]. Tissue Density: The breasts are heterogeneously dense, which may obscure small masses. Findings: Analyzed By CAD. There are small benign-appearing scattered round calcifications redemonstrated throughout the Bilateral breasts. There is no suspicious group of microcalcifications or new suspicious mass in either breast. Overall Assessment: Benign, BI-RAD 2 Management: Screening Mammogram of both breasts in 1 year. . Patient should continue monthly self-breast exams. A clinical breast exam by your physician is recommended on an annual basis. This exam should not preclude additional follow-up of suspicious palpable abnormalities. Note on Clair scores and lifetime risk: 1. A Clair score greater than 3% is considered moderate risk. If this is the case, consider specialist referral to assess eligibility for a risk reducing agent. 2. If overall lifetime risk for the development of breast cancer is 20% or higher, the patient may qualify for future screening with alternating mammogram and breast MRI. [facility], , 09/24/2024 2:50 PM. Electronically signed and approved by: Edson Davis M.D.
== END | disposition home or self-care (01) ==
LOC: RADMAMWWP 14:09
PROVIDERS: ATTEND Family Medicine
DX: Z12.31 Encounter for screening mammogram for malignant neoplasm of breast (principal); R92.333 Mammographic heterogeneous density, bilateral breasts; Z78.0 Asymptomatic menopausal state
CPT/HCPCS: 77067